=== PATIENT | female | born 1995 | race Caucasian/White ===

== ENCOUNTER 2020-01-20 09:35 | Inpatient (IN) | payer OTHER, SELFPAY ==
--- NOTE | 2020-01-15 16:08 | HP.PCM_ITS ---
History and Physical Date of Admission: 01/20/20 HPI: The patient is a 24 year old female presenting for pre-operative visit. She is scheduled for?, for?previous c/s on?01/20/2020. ??Procedure discussed along with risks, benefits and complications. ?Other alternatives discussed for management. Consent form signed??Yes.? w PAST MEDICAL HISTORY PAST MEDICAL HISTORY Diagnosis Date ? Anemia of in third trimester 10/29/2015 ? Fructose intolerance ? ? NEGATIVE HISTORY OF 04/02/2010 ? Normal color vision ? ? PAST SURGICAL HISTORY PAST SURGICAL HISTORY Procedure Laterality Date ? ANESTH, SECTION ? ? ? DELIVERY ONLY ? 01/13/16 ? , low transverse ? INSERTION OF IUD ? 03/25/2016 ? ? CURRENT MEDICATIONS Current Outpatient Medications Medication Sig Dispense Refill ? Breast Pump Use as directed 1 Each 0 ? PNV no.153/FA/om3/dha/epa/fish ( GUMMIES ORAL) Take by mouth. ? ? ? No current facility-administered medications for this visit.? ? ALLERGIES:?High Fructose Intolerance [Other] ? PERSONAL HISTORY:? SOCIAL HISTORY Social History ? Tobacco Use ? Smoking status: Never Smoker ? Smokeless tobacco: Never Used Substance Use Topics ? Alcohol use: No ? Drug use: No ? FAMILY HISTORY:? FAMILY HISTORY FAMILY HISTORY Adopted: Yes Problem Relation Age of Onset ? other (unknown) Other ?pt adopted ? REVIEW OF SYMPTOMS: GENERAL: denies fevers or chills ENDOCRINOLOGY: has not been on steroids Cardiology : denies palpitations or chest pain Respiratory: denies SOB or cough Hematology: denies history of prolonged bleeding or easy bruising or VTE Allergy: Denies history of personal or family history of allergy to anesthesia ? ? PHYSICAL EXAMINATION: ? VITALS:?Weight 112 lb (50.8 kg), last menstrual period 04/21/2019. ? GENERAL:??The patient is well nourished, well hydrated in no acute distress. ?, The patient is oriented to time, place, and person. NECK:?Supple. No lynphadenopathy, normal thyroid, no thyromegaly. LUNGS:?Clear to auscultation bilaterally. no wheezes, rhonchi or rales HEART:?Regular rate and rhythm, Normal heart sounds and No murmurs or gallops abd- soft, nontender, gravid ? IMPRESSION:?39?1/7 weeks on schedule repeat c/s date of 01/20/2020. ? ? PLAN:???The risks/benefits/alternatives and personal involved for the planned?c- section?were reviewed with the patient. Her questions were answered to her satisfaction and she desires to proceed. ?Consent was signed. ?I reviewed with her postop instructions and expectations. Patient agrees to preop COVID 19 scheduling and self quarantining after until delivery.? ? I have reviewed and updated past medical and surgical history, medications and allergies. This H&P was completed in my office on 01/15/2020. Procedure Criteria Procedure Type: Essential Procedure Essential: Yes Criteria Statement: On 11/05/2019 the [facility] [place] of Health ([facility]) Public Order signed by [facility] Director Nessa Diallo M.D., regarding the Management of Non-Essential Surgeries and Procedures for the purpose of preserving Personal Protective Equipment (PPE) and critical hospital capacity and resources within [place] went into effect as of 11/06/2019 at 5:00PM. According to the [facility] Public Order: This action will remain in full force and effect until the State of Emergency declared by the Governor no longer exists or the Director of the [facility] rescinds or modifies this Order. This [facility] order stated all non-essential or elective surgeries and procedures that utilize PPE should be delayed unless there is undue risk to the current or future health of a patient. After reviewing the aforementioned [facility] Public Order and the patient's clinical case, I have determined that the scheduled procedure meets the criteria to go forward. Risk to Patient if Procedure Delayed: Threat to patient's life if surgery or procedure is delayed
[2020-01-20] VITALS (24 sets, daily range): BP systolic 107–128; BP diastolic 57–88; PULSE 65–106; RESP 15–18; TEMP 35.6–37; O2SAT 84–99; BMI 23.9
[2020-01-20] MEDS: Lactated Ringers 1,000 ML 999 ML IV (09:50)
[2020-01-20 10:14] LABS: Absolute Lymphocyte Count 2.24 X10^3/uL (0.83-4.51); Basophil# 0.03 X10^3/uL; Basophil% 0.3 % (0-1); Eosinophil# 0.07 X10^3/uL; Eosinophils% 0.8 % (0-5); Hematocrit 36.4 % (37-47); Hemoglobin 11.9 g/dL (12.0-15.0); Lymphocyte # 2.24 X10^3/ul (4.0); Lymphocyte % 24.7 % (19-41); Mean Corp Hgb Conc 32.7 g/dL (32-36); Mean Corpuscular Hgb 25.5 pg (27.0-32.0); Mean Corpuscular Volume 77.9 fL (81-99); Mean Platelet Vol. 10.2 fl (6.2-12.0); Monocyte# 0.72 X10^3/uL; Monocyte% 7.9 % (0-10); NRBC Flagged by Analyzer 0 % (0-5); Neutrophil # 5.95 X10^3/uL (2.7-7.7); Neutrophil % 65.7 % (47-70); Platelet Count 307 K/mm3 (150-450); RBC Distribution Width CV 15.4 % (11.6-14.6); RBC Distribution Width SD 41.5 fl (35.1-43.9); Red Blood Count 4.67 M/mm3 (4.2-5.4); White Blood Count 9.1 K/mm3 (4.4-11.0)
[2020-01-20] MEDS: Lactated Ringers 1,000 ML 150 ML IV (10:50)
--- NOTE | 2020-01-20 11:19 | NURSING ---
pt states she at at 0700 this morning, a granola bar. information passed on to Tom from anesthesia who states c/s must be delayed until 1300. Information passed along to Dr Howard. Pt also informed of time change.
[2020-01-20] MEDS: Sodium Citrate/Citric Acid 30 ML UDC PO (12:48)
[2020-01-20] MEDS: Cefazolin 2 GM in 0.9% Normal Saline 100 ML IV (12:56)
--- NOTE | 2020-01-20 13:43 | PCM.OPRPT ---
Delivery Classification: Scheduled Final FRANCA: 01/26/20 Final FRANCA Source: US <20 weeks Gestational age: 39 Weeks and 1 Days business services representative: Lul Byrd Type of Anesthesia:: Spinal Implants Used: none Date of Procedure: 01/20/20 Pre-Operative Diagnosis: previous c/s, 39 week Post-Operative Diagnosis: same Indications for : Repeat Elective Description of Procedure: The patient was taken to the operating room. She was prepped and draped in the dorsal supine position with a leftward tilt. A Pfannenstiel skin incision was made approximately 2 cm above the symphysis pubis and carried through to underlying layer fascia with the scalpel. The fascia was incised incised in the midline and extended laterally with the Peña scissors. The fascia was dissected off the rectus muscles with blunt and sharp dissection. The rectus muscles were in the midline and the peritoneum was entered bluntly. The peritoneal incision was stretched and the bladder blade was placed. The uterine incision was made in a low transverse fashion with the scalpel and extended superiorly and inferiorly with blunt dissection. The amniotic membranes were ruptured bluntly and clear amniotic fluid returned. The 's head was brought to the incision in the flexed position and delivered without difficulty. The remainder of the infant was delivered with gentle traction and fundal pressure in the standard fashion. The mouth and nares were bulb suctioned. The cord was clamped and cut as the infant was stimulated. Cord clamping was delayed. The was handed off to the waiting nursing staff. The placenta was delivered with fundal massage and gentle traction in the standard fashion. The uterus was exteriorized and cleared of all clots and debris. The cervix was dilated with a ring forcep. The uterine incision was closed with #1 Vicryl in a running locked fashion. A second layer of the same suture was used in an imbricating fashion. The incision was examined and was found to be hemostatic. The uterus was placed back into the peritoneal cavity and hemostasis was again confirmed. The rectus muscles were examined and any bleeding was Bovie cauterized. The parietal peritoneum and rectus muscles were closed en bloc with an 0 Vicryl running suture. The surgical teams outer gloves were then changed. The rectus fascia was examined and any bleeding was Bovie cauterized and the rectus fascia was closed with 1 Vicryl suture in a running standard fashion. The subcutaneous tissue was examining and any bleeding was Bovie cauterized. The subcutaneous tissue was reapproximated with 3-0 Vicryl suture. The skin was closed in a subcuticular fashion by the VP BUSINESS DEVELOPMENT with me present in the labor and delivery suite. I performed the remainder of the procedure with assistance. All sponge, lap, and needle counts were correct. The patient was taken to her room for recovery in a stable condition. Amniotic Membrane Rupture Type: Artificial Amniotic Fluid Description: Clear Placenta Disposition: [facility] Specimen(s) sent to pathology: none Drain: Olivas to straight drain Fluids Replaced: 1000 cc LR Cord Entanglement: Around neck x 1, loose Nuchal Cord Compression: Without compression Gender: Female - Emberlyn (1 minute): 8 (5 minute): 9 Delayed cord clamping: Yes Antibiotic Given: Ancef 1 gram IV x1 Complications: None - Admit VTE Documentation VTE Present on Admission: No VTE Mechan Device Prophylaxis: SCD's VTE Pharm Prophylaxis ordered?: No Reason prophylaxis not ordered:: Procedure Not Indicated
[2020-01-20] MEDS: Oxytocin 30 units/NS 500 ml 30 UNITS/500 ML IV.SOLN 167 UNITS IV (14:05)
[2020-01-20] MEDS: Lactated Ringers 1,000 ML 100 ML IV (17:09)
[2020-01-20] MEDS: Ketorolac 30 MG/ML Syringe 15 MG IV (20:16)
--- NOTE | 2020-01-20 20:24 | NURSING ---
pt has indwelling urinary catheter as pt is post op
--- NOTE | 2020-01-20 22:15 | NURSING ---
Pt ambulated around bed for first post op ambulation. Pt tolerated well. Reports comfortable level of pain. Would like to rest at this this time. RN encouraged pt to call RN if pt needs anything.
[2020-01-21] VITALS (8 sets, daily range): BP systolic 105–116; BP diastolic 57–71; PULSE 61–86; RESP 15–18; TEMP 36.1–36.9; O2SAT 97–99
[2020-01-21] MEDS: Ketorolac 30 MG/ML Syringe 15 MG IV ×4 (02:28→20:15)
[2020-01-21] MEDS: Lactated Ringers 1,000 ML 100 ML IV (02:33)
[2020-01-21 05:48] LABS: Hematocrit 30.8 % (37-47); Hemoglobin 9.5 g/dL (12.0-15.0); Mean Corp Hgb Conc 30.8 g/dL (32-36); Mean Corpuscular Hgb 24.4 pg (27.0-32.0); Mean Corpuscular Volume 79.2 fL (81-99); Mean Platelet Vol. 9.9 fl (6.2-12.0); Platelet Count 219 K/mm3 (150-450); RBC Distribution Width CV 15.5 % (11.6-14.6); RBC Distribution Width SD 43.6 fl (35.1-43.9); Red Blood Count 3.89 M/mm3 (4.2-5.4)
[2020-01-21 05:53] LABS: Scan Indicated on CBC? Y/N NO
[2020-01-21] MEDS: 0.9% Saline Lock 10 ML Syringe IV ×3 (08:36→20:16)
--- NOTE | 2020-01-21 12:21 | PCM.PN.OB ---
Subjective: pain well controlled, average lochia - Physical Exam Vitals/I&O's: Vital Signs Temp Pulse Resp BP Pulse Ox 97.0 F L 61 16 109/65 99 01/21/20 08:20 01/21/20 08:20 01/21/20 08:20 01/21/20 08:20 01/21/20 08:20 Oxygen Delivery Method Room Air Weight: 50.167 kg Body Mass Index (BMI) 23.9 Intake and Output for Last 24 Hours 01/19/20 01/20/20 01/21/20 23:59 23:59 23:59 Intake Total 1973 / 1973 1251.67 / 1251.67 Output Total 300 / 300 1050 / 1050 Balance 1674 / 1674 201.67 / 201.67 General: Alert, Cooperative, No apparent distress Abdomen: Soft, Distended - moderately, softly, Tender - appropriately, - - fundus firm and below umbilicus Extremities: Edema - 1+ Skin: Incision - bandage clean, dry and intact Laboratory Results 01/17/20 09:50: COVID-19 (ADELE) Not Detected 01/21/20 05:33: WBC 11.0, RBC 3.89 L, Hgb 9.5 L, Hct 30.8 L, MCV 79.2 L, MCH 24.4 L, MCHC 30.8 L D, RDW Std Deviation 43.6, RDW Coeff of Anjana 15.5 H, Plt Count 219, MPV 9.9 Current Medications Acetaminophen (Tylenol) 1,000 mg PO Q8H PRN PRN Reason: Pain Score 1-3/10 Bisacodyl (Dulcolax) 10 mg RECTAL UD PRN PRN Reason: If no BM Diphenhydramine HCl (Benadryl) 25 mg PO Q6H PRN PRN PRN Reason: ITCHING Stop: 01/21/20 14:14 Hydrocortisone (Hytone) 1 applic TOPICAL TID PRN PRN; Protocol PRN Reason: Discomfort Lactated Ringer's () 1,000 mls @ 100 mls/hr IV .Q10H CARROLL Last Infusion: 01/21/20 05:40 Dose: Infused Documented by: Naloxone HCl 4 mg/ Dextrose 504 mls @ 0 mls/hr IV .Q0M PRN; Protocol PRN Reason: Respiratory depression Ibuprofen (Motrin) 600 mg PO Q6H PRN PRN PRN Reason: Pain Score 1-3/10 Ketorolac Tromethamine (Toradol (Bkc)) 15 mg IV Q6H CARROLL Stop: 01/22/20 14:01 Last Admin: 01/21/20 08:35 Dose: 15 mg Documented by: Methylergonovine Maleate (Methergine) 0.2 mg IM X1 PRN PRN Reason: Uterine Atony Nalbuphine HCl (Nubain) 5 mg IV Q3H PRN PRN PRN Reason: ITCHING Stop: 01/21/20 14:14 Naloxone HCl (Narcan) 0.02 mg IV Q1M PRN PRN Reason: RR <10 and pt unresponsive Ondansetron HCl (Zofran) 4 mg IV Q4H PRN PRN PRN Reason: Nausea Oxycodone HCl (Oxyir) 5 - 10 mg PO Q4H PRN PRN PRN Reason: Pain Score 4-10/10 Prochlorperazine Edisylate (Compazine Iv) 10 mg IV Q6H PRN PRN PRN Reason: NAUSEA Senna/Docusate Sodium (Senokot-S, Margarita-Colace) 0 tablet PO DAILY PRN PRN Reason: Constipation Simethicone (Mylicon) 80 mg PO PCHS PRN PRN Reason: Indigestion/stomach pain Sodium Chloride () 5 - 15 ml IV UD PRN PRN Reason: SALINE FLUSH Last Admin: 01/21/20 08:36 Dose: 10 ml Documented by: Medical Necessity - Tobacco Use Smoking Status: Never smoker Assessment/Plan POD#1 doing well routine care acute blood loss anemia, mild, appropriate for blood loss during surgery routine care
[2020-01-21] MEDS: Acetaminophen 500 MG Tablet 1000 MG PO (18:17)
[2020-01-21] MEDS: oxyCODONE 5 MG Tablet PO (19:32)
[2020-01-22 02:40] VITALS: BP 105/64; PULSE 64; RESP 18; TEMP 36.2; O2SAT 96
[2020-01-22] MEDS: 0.9% Saline Lock 10 ML Syringe IV ×2 (02:44→08:20)
[2020-01-22] MEDS: Ketorolac 30 MG/ML Syringe 15 MG IV ×2 (02:44→08:21)
--- NOTE | 2020-01-22 08:18 | DCINST_ITS ---
Discharge Diet: No Restrictions Discharge Activity: Return to Normal Activity, May Not Drive - for 2 weeks, May not drive while taking narcotic pain medications., May Shower, May Take a Tub Bath - in 7 days. May resume sexual activity in: 4-6 weeks Lifting Restrictions: 20 pounds Additional Activity Instructions:: Nothing in the vagina for 4-6 weeks. You may return to work/school in 6 weeks. Call your doctor if your incision/area has: Continuous Slow Oozing, Sudden Increased Bleeding, Increased Pain/ Swelling, Increased Redness, Foul Smelling Discharge Call your doctor if you observe: Fever of 101 or Higher, Using more than one pad per hour - for 2 hours Suture Line Care: Avoid Pulling/Pushing, Avoid Pinching/Bending Cleanse incision/area with: Keep Dressing Clean & Dry Additional Instructions: If you experience any of the following, contact your healthcare provider. * Bleeding that soaks a pad every hour for 2 hours * Fever 100.4 or higher * Unrelieved incision or abdominal pain * Swelling, redness, discharge or bleeding from your incision or episiotomy site * Your incision begins to separate * Problems urinating (including inability to urinate or burning while urinating). * Visual changes * Severe headache * Flu-like symptoms * Pain or redness in one of both of your breasts * Pain, warmth, tenderness or swelling in your legs, especially the calf area * Frequent nausea and vomiting * Symptoms of depression or anxiety If you experience any of the following, call 911 or go to the nearest Emergency Room. * Chest pain * Problems breathing * Seizure activity * Partial or complete paralysis of a body part, slurred speech, weakness or drooping of the face, or a sudden inability to walk or hold your balance Allergies/Adverse Reactions: Allergies fructose intolerance Adverse Reaction (Uncoded 01/20/20 09:53) Abd cramps/diarrhea Medications to take at Discharge Pnv No.95/Ferrous Fum/Folic AC [ Caplet] 1 tab PO DAILY 01/20/20 Ibuprofen [Motrin] 600 mg PO Q6H PRN PRN 10 Days #30 tab 01/22/20 Oxycodone [Oxyir] 2.5 - 5 mg PO Q6H PRN PRN 7 Days #20 tab 01/22/20 The following prescriptions were given: Ibuprofen [Motrin] 600 mg PO Q6H PRN PRN 10 Days #30 tab PRN Reason: Pain Or Fever Transmission Status: Pending to [facility] Oxycodone [Oxyir] 2.5 - 5 mg PO Q6H PRN PRN 7 Days #20 tab PRN Reason: severe pain Transmission Status: Sent to [facility] Follow-Up: Call to make an appointment with your doctor for an incision check in 1-2 weeks. You will also need a 6 week post- follow up appointment. Test results from this visit will be discussed in further detail at your follow- up appointment, if applicable. Please Follow Up With: Franci Howard MD - Call to make an appointment for an incision check in 1-2 [phone] When: You will need a post check in 6 weeks. Primary Care Physician: Yury Ghotra DO [Primary Care Provider] -
[2020-01-22] MEDS: Senna/Docusate Sodium 1 Tablet PO (08:20)
--- NOTE | 2020-01-22 08:20 | DS.PCM_ITS ---
Discharge Date and Diagnosis Date of Admission: 01/20/20 Date of Discharge: 01/22/20 Hospital Course and Treatment Operations: - - Repeat low transverse section via Pfannenstiel skin incision Procedures: None Summary of Care Provided: The patient is a 24 female admitted at 39-1/7 weeks gestation for repeat section. This was performed without difficulty. Patient had mild acute blood loss anemia appropriate for blood loss during surgery. She was tolerating this well. By postoperative day #2 she was ambulating, urinating, tolerating regular diet without difficulty. She was discharged home with routine instructions and prescriptions. She is to follow-up for her visits in 1-2 in 6 weeks or as needed. [] - Physical Exam Vitals/I&O's: Vital Signs Temp Pulse Resp BP Pulse Ox 97.1 F L 64 18 105/64 96 01/22/20 02:40 01/22/20 02:40 01/22/20 02:40 01/22/20 02:40 01/22/20 02:40 Oxygen Delivery Method Room Air Weight: 50.167 kg Body Mass Index (BMI) 23.9 Intake and Output for Last 24 Hours 01/20/20 01/21/20 01/22/20 23:59 23:59 23:59 Intake Total 1973 / 1973 1251.67 / 1251.67 Output Total 300 / 300 1650 / 1650 Balance 1674 / 1674 -398.33 / -398.33 Current Medications Acetaminophen (Tylenol) 1,000 mg PO Q8H PRN PRN Reason: Pain Score 1-3/10 Last Admin: 01/21/20 18:17 Dose: 1,000 mg Documented by: Bisacodyl (Dulcolax) 10 mg RECTAL UD PRN PRN Reason: If no BM Hydrocortisone (Hytone) 1 applic TOPICAL TID PRN PRN; Protocol PRN Reason: Discomfort Naloxone HCl 4 mg/ Dextrose 504 mls @ 0 mls/hr IV .Q0M PRN; Protocol PRN Reason: Respiratory depression Ibuprofen (Motrin) 600 mg PO Q6H PRN PRN PRN Reason: Pain Score 1-3/10 Ketorolac Tromethamine (Toradol (Bkc)) 15 mg IV Q6H CARROLL Stop: 01/22/20 14:01 Last Admin: 01/22/20 02:44 Dose: 15 mg Documented by: Methylergonovine Maleate (Methergine) 0.2 mg IM X1 PRN PRN Reason: Uterine Atony Naloxone HCl (Narcan) 0.02 mg IV Q1M PRN PRN Reason: RR <10 and pt unresponsive Ondansetron HCl (Zofran) 4 mg IV Q4H PRN PRN PRN Reason: Nausea Oxycodone HCl (Oxyir) 5 - 10 mg PO Q4H PRN PRN PRN Reason: Pain Score 4-10/10 Last Admin: 01/21/20 19:32 Dose: 10 mg Documented by: Prochlorperazine Edisylate (Compazine Iv) 10 mg IV Q6H PRN PRN PRN Reason: NAUSEA Senna/Docusate Sodium (Senokot-S, Margarita-Colace) 0 tablet PO DAILY PRN PRN Reason: Constipation Simethicone (Mylicon) 80 mg PO PCHS PRN PRN Reason: Indigestion/stomach pain Sodium Chloride () 5 - 15 ml IV UD PRN PRN Reason: SALINE FLUSH Last Admin: 01/22/20 02:44 Dose: 10 ml Documented by: Discharge Diet: No Restrictions Discharge Activity: Return to Normal Activity, May Not Drive - for 2 weeks, May not drive while taking narcotic pain medications., May Shower, May Take a Tub Bath - in 7 days. May resume sexual activity in: 4-6 weeks Additional Activity Instructions:: Nothing in the vagina for 4-6 weeks. You may return to work/school in 6 weeks. Call your doctor if your incision/area has: Continuous Slow Oozing, Sudden Increased Bleeding, Increased Pain/ Swelling, Increased Redness, Foul Smelling Discharge Call your doctor if you observe: Fever of 101 or Higher, Using more than one pad per hour - for 2 hours Suture Line Care: Avoid Pulling/Pushing, Avoid Pinching/Bending Cleanse incision/area with: Keep Dressing Clean & Dry Home Medications: Medications to take at Discharge Pnv No.95/Ferrous Fum/Folic AC [ Caplet] 1 tab PO DAILY 01/20/20 Ibuprofen [Motrin] 600 mg PO Q6H PRN PRN 10 Days #30 tab 01/22/20 Oxycodone [Oxyir] 2.5 - 5 mg PO Q6H PRN PRN 7 Days #20 tab 01/22/20 Following Prescrptions Were Given to Patient: Ibuprofen [Motrin] 600 mg PO Q6H PRN PRN 10 Days #30 tab PRN Reason: Pain Or Fever Transmission Status: Sent to [facility] Oxycodone [Oxyir] 2.5 - 5 mg PO Q6H PRN PRN 7 Days #20 tab PRN Reason: severe pain Transmission Status: Sent to [facility] Primary Care Physician: Yury Ghotra DO [Primary Care Provider] - Please Follow Up With: Franci Howard MD - Call to make an appointment for an incision check in 1-2 [phone] When: You will need a post check in 6 weeks. Medical Necessity - Tobacco Use Smoking Status: Never smoker Meaningful Use Info Meaningful Use Diagnoses (Choose all that apply): None applicable
[2020-01-22 08:25] VITALS: BP 107/65; PULSE 70; RESP 14; TEMP 36.2
== END 2020-01-22 12:00 | disposition home or self-care (01) | DRG 788 ==
PROVIDERS: Admitting Provider Obstetrics & Gynecology; PCP Student in an Organized Health Care Education/Training Program; Referring Provider Obstetrics & Gynecology; Visit Provider Obstetrics & Gynecology
PROC: 10D00Z1 Extraction of Products of Conception, Low, Open Approach (ICD-10-PCS; CPT 59514; principal; 2020-01-20 11:45)
DX: O34.211 Maternal care for low transverse scar from previous cesarean delivery (principal); O69.81X0 Labor and delivery complicated by cord around neck, without compression, not applicable or unspecified; Z3A.39 39 weeks gestation of pregnancy; Z37.0 Single live birth
CPT/HCPCS: 85025; 85027; 86850; 86900; 86901; 87635; 99218; G2023; J7120; A4216; G0378; J2405; U0003